=== PATIENT | female | born 1965 | race Two or more races ===

== ENCOUNTER → 2024-03-09 | Outpatient (CLI) | payer MEDICAID, SELFPAY ==
--- NOTE | 2024-03-09 08:30 | XR_ITS ---
Exam: MRI knee without contrast, right Date and time of exam: March 09, 2024 0844 hours INDICATIONS: Lifting injury to the knee May 24, 2023 lateral anterior medial right knee pain joint clicking and swelling beginning 9 months ago Technique: Multiple axial, coronal, and sagittal sections on the knee have been obtained. T2-Weighted sagittal, fat-suppressed images, TR 3,500, TE 62, T2 weighted coronal fat-saturated images, TR 3,500, TE 62 Proton density sagittal sections, TR 1800, TE 31. T-1 weighted coronal images, TR 524, TE 13.0 Findings: Medial meniscus anterior horn intact. Medial meniscus, body is horizontal linear tear communicating inner margin. Posterior horn medial meniscus horizontal linear tear communicating inner margin. Lateral meniscus anterior horn is intact Lateral meniscus, body is intact Posterior horn lateral meniscus is intact Anterior cruciate ligament appears intact. Posterior cruciate ligament appears intact. Knee effusion is small. Quadriceps and patellar tendons appear intact. There is no evidence of tendinosis. Inflammatory change or fracture of Hoffa's fat pad is not seen. Medial patellar facet demonstrates severe thinning. Lateral patellar facet cartilage demonstrates severe thinning. Trochlear cartilage demonstrates severe thinning. Marrow signal adequate. Medial collateral ligament appears intact. No meniscocapsular separation is seen. Illiotibial band and fibular collateral ligament are intact. Biceps femoris tendons appear intact. Medial femoral condylar articular cartilage demonstrates severe thinning. Lateral femoral condylar articular cartilage demonstratesmoderate thinning. Tibial plateau cartilage demonstrates severe medial thinning. Impression: Horizontal linear tear as body and posterior horn medial meniscus
== END | disposition home or self-care (01) ==
PROVIDERS: PCP Family Medicine; Referring Provider Family Medicine; Visit Provider Family Medicine
DX: S83.241A Other tear of medial meniscus, current injury, right knee, initial encounter (principal); X58.XXXA Exposure to other specified factors, initial encounter
CPT/HCPCS: 73721

== ENCOUNTER 2024-06-19 10:25 | Outpatient (AMB) | payer MEDICAID, SELFPAY ==
[2024-06-19 11:03] VITALS: BP 125/81; PULSE 64; RESP 18; TEMP 36.4; O2SAT 96; BMI 40.8
--- NOTE | 2024-06-19 11:03 | PD.ORTHCLVIS ---
Vital signs 06/19/24 11:03 Height 1.63 m Height Method Stated Weight 108.097 kg Weight Measurement Method Standing Scale BMI 40.8 BP 125/81 Blood Pressure Source Automatic Cuff Blood Pressure Location Left Upper Arm Position Sitting Respiration 18 Pulse 64 Pulse Source Monitor Temp 97.5 F Temp Source Temporal Artery Scan Pulse Oximetry (%) 96 Oxygen Delivery Method Room Air Med/Allergies Allergies & Medications Allergies No Known Allergies Allergy (Verified 06/19/24 11:06) Medication Reconciliation levothyroxine 112 mcg tablet 112 mcg PO QDAY 08/11/18 [History Confirmed 06/19/24] acetaminophen 500 mg capsule 500 mg PO Q6H PRN pain #30 caps 09/11/22 [Rx Confirmed 06/19/24] ibuprofen 800 mg tablet 800 mg PO TID PRN pain #30 tabs 06/01/23 [Rx Confirmed 06/19/24] meloxicam 7.5 mg tablet 7.5 mg PO QDAY #45 tabs 06/19/24 [Rx] Exam Exam Breathing is nonlabored. Patient has a normal mood and affect. Bilateral extremities were evaluated and demonstrates sensation intact to light touch. Palpable pedal pulses are present. No significant edema is present. Bilateral hips were examined. The patient has no pain with log roll of the hips. Internal rotation to 30 degrees and external rotation to 30 degrees is painless. Negative FADIR. Left knee was examined today. The left knee is in reasonable alignment. Range of motion from 0-120 degrees. Knee is stable to varus and valgus as well as AP translation with <5mm. Patient has a negative McMurrays. There is no pain with patellofemoral compression and no crepitus noted. The knee is nontender to palpation. The right knee was also examined. The right knee is in varus alignment. Range of motion from 0-115 degrees. Knee is stable to varus and valgus as well as AP translation with <5mm. Patient has a negative McMurrays. There is no pain with patellofemoral compression and no crepitus noted. The knee is tender to palpation medially. An MRI was reviewed. This is in March 2024. This demonstrates a posterior horn the medial meniscus tear Assessment and Plan Problem List (1) Right knee meniscal tear: Status: Acute Plan: Patient is a 58-year-old female with a right knee meniscal tear and right knee arthritis. We discussed different treatment options. We would like to get weightbearing x-rays. We will likely do a cortisone injection at the next visit. Plan Recommend knee cortisone injection as patient would like to proceed with conservative treatment at this time. The risks and benefits of the procedure were reviewed with the patient and patient gave verbal consent to continue with the procedure. Procedure: performed by Dr. Holt Using sterile technique the Right knee was thoroughly prepped with alcohol, and approximately 1 cc of Kenalog 40 mg/mL and 4 cc of 1% lidocaine was injected without resistance into the medial tibial femoral joint space. The patient tolerated the procedure. 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) [place] Intake Visit Data Collection New Patient or Established: New Patient (never been to [facility]) Reason for Visit:: MENISCUS TEARRIGHT KNEE PAIN Lathmaker Required: Yes PCP or OBGYN visit in last 3 months: Yes Hx Now: No Do You Feel Safe at Home: Yes Authorities Contacted: N/A Questionairres Past Medical History Past Medical History Have you ever been diagnosed with any of the following: Neurological Problems Seizures: No Cardiology Problems Congestive Heart Failure: No Edema: No Cellulitis: No Hypertension: Yes Varicose Veins: Yes Respiratory Problems Chronic Obstructive Pulmonary Disease (COPD): No Tuberculosis: No Sleep Apnea: Yes Smoking: No Smoking Exposure: No Stomache/Intestinal Problems Hepatitis: No Gall Bladder Disease: Yes Gastroesophageal Reflux Disease: Yes Obesity: Yes Genital/Urinary Problems Renal Disease: No Kidney Stones: No Reproductive Problems Pelvic Inflammatory Disease: No Previous Pregnancies: Yes (6) Endocrine Problems Diabetes Mellitus Type 1: No Diabetes Mellitus Type 2: No Hypothyroidism: Yes Other Problems Hospitalization: Yes (surgery) Shingles: No Falls: No Blood Transfusions: No Blood Transfusion Reaction: No Anesthesia Reactions: No Chemotherapy: No Radiation Therapy: No MRSA: No Chicken Pox: Yes Measles: No Mumps: No Cancer: No Surgical History Hysterectomy: Yes (PARTIAL) Pacemaker: No Subjective Visit Visit for: new patient and knee (RIGHT) Immunization / Flu Flu Vaccine in the Last 12 Months: Yes Flu Vaccine Exclusion Criteria: Already Received History of Present Illness Chief complaint: Bilateral knee pain Patient is a pleasant 58-year-old female with bilateral knee pain. We discussed different treatment options. She is only tried anti-inflammatories and physical therapy. Has not had any injections. She has a chronic meniscal tear. Pain Pain level (0-10): 6 Pain duration: ON AND OFF Pain location: inside (medial), outside (lateral) and anterior Pain quality: sharp, dull and aching Pain timing: night, increases with activity and stairs Associated signs & symptoms: weakness Ambulatory data Ambulatory device: none Treatments Improvement with previous injections: No Number of Physical Therapy sessions: 8 Improvement with PT: No Improvement with NSAIDS: no Review of Systems Review of Systems: All systems negative unless otherwise noted in HPI.
--- NOTE | 2024-06-19 11:26 | XR_ITS ---
Examination: Bilateral knees 2 views Right lateral knee left lateral knee 2 views Bilateral axial knees single view TECHNIQUE: Bilateral AP standing knees single view, bilateral PA knees standing single view flexion Standing right lateral knee left lateral knee 2 views Bilateral axial knees single view total 6 views Exam date and time: June 19, 2024 1147 hours INDICATIONS: Bilateral knee pain, right-sided knee injury one year ago left-sided knee pain 4 months FINDINGS: Moderate to advanced narrowing medial joint space right knee Moderate osteoarthritis right patellofemoral joint Mild to moderate narrowing medial joint space left knee Mild to moderate osteoarthritis left patellofemoral joint No fracture involving either knee, no patellar dislocation Impression: Osteoarthritis as above
== END 2024-06-19 11:34 | disposition home or self-care (01) ==
PROVIDERS: PCP Family Medicine; Referring Provider Family Medicine; Supervising Provider Orthopaedic Surgery Adult Reconstructive Orthopaedic Surgery; Visit Provider Orthopaedic Surgery Adult Reconstructive Orthopaedic Surgery
DX: S83.206A Unspecified tear of unspecified meniscus, current injury, right knee, initial encounter (principal); M17.11 Unilateral primary osteoarthritis, right knee; X58.XXXA Exposure to other specified factors, initial encounter; I10 Essential (primary) hypertension; G47.30 Sleep apnea, unspecified
CPT/HCPCS: 73564; 99204; G0463

== ENCOUNTER 2024-07-06 09:37 | Outpatient (AMB) | payer MEDICAID, SELFPAY ==
[2024-07-06 10:22] VITALS: BP 124/81; PULSE 65; RESP 18; TEMP 36.4; O2SAT 99; BMI 44.1
--- NOTE | 2024-07-06 10:22 | ORTHONT_ITS ---
Vital signs 07/06/24 10:22 Height 1.63 m Height Method Stated Weight 117.112 kg Weight Measurement Method Standing Scale BMI 44.1 BP 124/81 Blood Pressure Source Automatic Cuff Blood Pressure Location Right Upper Arm Position Sitting Respiration 18 Pulse 65 Pulse Source Monitor Temp 97.6 F Temp Source Temporal Artery Scan Pulse Oximetry (%) 99 Oxygen Delivery Method Room Air Med/Allergies Allergies & Medications Allergies No Known Allergies Allergy (Verified 07/06/24 10:23) Medication Reconciliation levothyroxine 112 mcg tablet 112 mcg PO QDAY 08/11/18 [History Confirmed 07/06/24] acetaminophen 500 mg capsule 500 mg PO Q6H PRN pain #30 caps 09/11/22 [Rx Confirmed 07/06/24] ibuprofen 800 mg tablet 800 mg PO TID PRN pain #30 tabs 06/01/23 [Rx Confirmed 07/06/24] meloxicam 7.5 mg tablet 7.5 mg PO QDAY #45 tabs 06/19/24 [Rx Confirmed 07/06/24] pantoprazole 40 mg tablet,delayed release 40 mg PO QDAY 07/06/24 [History Confirmed 07/06/24] sucralfate 1 gram tablet 1 g PO BID 07/06/24 [History Confirmed 07/06/24] Exam Exam Breathing is nonlabored. Patient has a normal mood and affect. Bilateral extremities were evaluated and demonstrates sensation intact to light touch. Palpable pedal pulses are present. No significant edema is present. Bilateral hips were examined. The patient has no pain with log roll of the hips. Internal rotation to 30 degrees and external rotation to 30 degrees is painless. Negative FADIR. Left knee was examined today. The left knee is in reasonable alignment. Range of motion from 0-120 degrees. Knee is stable to varus and valgus as well as AP translation with <5mm. Patient has a negative McMurrays. There is no pain with patellofemoral compression and no crepitus noted. The knee is nontender to palpation. The right knee was also examined. The right knee is in varus alignment. Range of motion from 0-115 degrees. Knee is stable to varus and valgus as well as AP translation with <5mm. Patient has a negative McMurrays. There is no pain with patellofemoral compression and no crepitus noted. The knee is tender to palpation medially. X-rays demonstrate mild to moderate joint space narrowing of the right knee with osteophytes. Assessment and Plan Problem List (1) Right knee meniscal tear: Status: Acute Plan: Patient is a 58-year-old female with a right knee meniscal tear and right knee arthritis. We discussed different treatment options. She has mild to moderate arthritis, treated conservatively with an injection. We also discussed the natural history of degenerative meniscal tear today Plan Recommend knee cortisone injection as patient would like to proceed with conservative treatment at this time. The risks and benefits of the procedure were reviewed with the patient and patient gave verbal consent to continue with the procedure. Procedure: performed by Dr. Holt Using sterile technique the Right knee was thoroughly prepped with alcohol, and approximately 1 cc of Kenalog 40 mg/mL and 4 cc of 1% lidocaine was injected without resistance into the medial tibial femoral joint space. The patient tolerated the procedure. Office Procedures GNS Level of Care Nursing/Assessment Patient Status: Established Patient Nursing Assessment/Reassesment: Medication Reconciliation, Update PMH in EMR and Vital Signs Coordination of Care: Complex Care and Chronic Disease 1-5, Education Complex Pt/Fam, Consent,records obtained, informed consent, Results/Orders obtained and Staff clarify orders Special Needs: Language special needs Established Patient Charge Established Patient Point Assignment: 95 Established Patient Point Charge: EP Level 3 (80-115) Surgical Proc/IM SQ injection Major Surgical Procedure: Yes (RIGHT KNEE INJECTION) Medication Given Medication Given Medication Given: Yes Documented Dose Given: 4 Route: Infiitration Medication Given Medication Given Medication Given: Yes Documented Dose Given: 1 Route: Infiitration Office Meds Xylocaine 10 mg/mL (1 %) injection solution Performing Provider: Antonio Holt MD Performing Location: [facility] Administered by: Antonio Holt MD on 07/06/24 11:11 Dose Route Admin Location Dispensed Lot Number Expiration Date [facility] [employer] 20 mL Infiltration 20 mL [id number] 08/02/27 45901-382-92 [facility] triamcinolone acetonide 40 mg/mL suspension for injection Performing Provider: Antonio Holt MD Performing Location: [facility] Administered by: Antonio Holt MD on 07/06/24 11:11 Dose Route Admin Location Dispensed Lot Number Expiration Date [facility] [employer] 40 mg intra-articular KNEE 1 mL [id number] 08/31/25 4027-8198-60 [facility] [place] Intake Visit Data Collection New Patient or Established: Established Patient (seen at [facility] within 3 years) Reason for Visit:: F/U XRAYS Seen by Clinical Staff ONLY (RN/MA): 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 PCP or OBGYN visit in last 3 months: Yes Hx Now: No Do You Feel Safe at Home: Yes Authorities Contacted: N/A Questionairres Past Medical History Past Medical History Have you ever been diagnosed with any of the following: Neurological Problems Seizures: No Cardiology Problems Congestive Heart Failure: No Edema: No Cellulitis: No Hypertension: Yes Varicose Veins: Yes Respiratory Problems Chronic Obstructive Pulmonary Disease (COPD): No Tuberculosis: No Sleep Apnea: Yes Smoking: No Smoking Exposure: No Stomache/Intestinal Problems Hepatitis: No Gall Bladder Disease: Yes Gastroesophageal Reflux Disease: Yes Obesity: Yes Genital/Urinary Problems Renal Disease: No Kidney Stones: No Reproductive Problems Pelvic Inflammatory Disease: No Previous Pregnancies: Yes (6) Endocrine Problems Diabetes Mellitus Type 1: No Diabetes Mellitus Type 2: No Hypothyroidism: Yes Other Problems Hospitalization: Yes (surgery) Shingles: No Falls: No Blood Transfusions: No Blood Transfusion Reaction: No Anesthesia Reactions: No Chemotherapy: No Radiation Therapy: No MRSA: No Chicken Pox: Yes Measles: No Mumps: No Cancer: No Surgical History Hysterectomy: Yes (PARTIAL) Pacemaker: No Subjective Visit Visit for: follow up visit and x-rays (RESULTS) Immunization / Flu Flu Vaccine in the Last 12 Months: No Flu Vaccine Exclusion Criteria: No Exclusion Criteria History of Present Illness Chief complaint: right knee pain Patient is a 58-year-old female with a right knee degenerative meniscal tear with posterior horn. We discussed that this is typically treated nonoperatively. She reports the pain is still tolerable at this point in time. Pain is medially. Pain Pain level (0-10): 6 Pain duration: ALL DAY Pain location: anterior and posterior Pain quality: sharp, dull and aching Associated signs & symptoms: none Ambulatory data Ambulatory device: none Treatments Improvement with previous injections: No Improvement with PT: No Improvement with NSAIDS: no Review of Systems Review of Systems: All systems negative unless otherwise noted in HPI.
== END 2024-07-06 10:42 | disposition home or self-care (01) ==
LOC: HODSRG 09:37
PROVIDERS: PCP Family Medicine; Referring Provider Family Medicine; Supervising Provider Orthopaedic Surgery Adult Reconstructive Orthopaedic Surgery; Visit Provider Orthopaedic Surgery Adult Reconstructive Orthopaedic Surgery
DX: S83.203D Other tear of unspecified meniscus, current injury, right knee, subsequent encounter (principal); X58.XXXD Exposure to other specified factors, subsequent encounter; M17.11 Unilateral primary osteoarthritis, right knee; I10 Essential (primary) hypertension; G47.30 Sleep apnea, unspecified; K21.9 Gastro-esophageal reflux disease without esophagitis; E03.9 Hypothyroidism, unspecified
CPT/HCPCS: 20610; 99213; J3301; J3490; G0463

== ENCOUNTER 2024-08-14 06:05 | Emergency (ER) | payer MEDICAID, SELFPAY ==
[2024-08-14 06:05] VITALS: BMI 39.4
[2024-08-14 06:51] VITALS: BP 155/92; PULSE 63; RESP 16; TEMP 37; O2SAT 96
--- NOTE | 2024-08-14 07:05 | PD.EDHA ---
ED Headache RME/HPI General Chief Complaint: Headache Stated Complaint: HEADACHE Time Seen by Provider: 08/14/24 06:24 Arrival date/time: 08/14/24 06:05 This is a 58-year-old female that comes in with complaints of headache. Patient states she was recently sick with a sinus infection/throat infection. Patient states she was given antibiotics. Patient reports that she still having a headache. Patient denies nausea vomiting diarrhea. Patient has a history of hypothyroidism gastritis. Related Data Home Medications ?Medication ?Instructions ?Recorded ?Confirmed levothyroxine 112 mcg tablet 112 mcg PO QDAY 08/11/18 07/06/24 pantoprazole 40 mg tablet,delayed 40 mg PO QDAY 07/06/24 07/06/24 release sucralfate 1 gram tablet 1 g PO BID 07/06/24 07/06/24 Previous Rx's ?Medication ?Instructions ?Recorded acetaminophen 500 mg capsule 500 mg PO Q6H PRN pain #30 caps 09/11/22 ibuprofen 800 mg tablet 800 mg PO TID PRN pain #30 tabs 06/01/23 meloxicam 7.5 mg tablet 7.5 mg PO QDAY #45 tabs 06/19/24 Allergies Allergy/AdvReac Type Severity Reaction Status Date / Time No Known Allergies Allergy Verified 07/06/24 10:23 Review of Systems Review of Systems Systems Reviewed: All systems reviewed, normal except as documented Past Medical History Past Medical History NEUROLOGIC: Negative Neurological Disorders CARDIAC: Negative Cardiac Disorders ED Exam Narrative Physical exam: VITAL SIGNS: Reviewed. GENERAL APPEARANCE: Alert and interactive, follows commands, no acute distress, HEAD AND FACE: Non-traumatic. ENT: PERRL, pink conjunctivitis, eyelid no trauma, Mucous membrane moist. NECK: Supple, nontender, no nuchal rigidity. CHEST: No tenderness, no crepitus, no paradoxical movement, no retractions. LUNGS: Clear, well ventilated, symmetric, no rales, no wheezing, no rhonchi, no stridor, good breath sounds bilaterally. HEART: Regular rate, regular rhythm, no murmur, no gallops. ABDOMEN: Soft, nondistended, no guarding, nontender, no rebound, no masses, NEUROLOGICAL: Gross motor function intact sensory function intact, Appropriate for age. MUSCULOSKELETAL: low back nontender, full range of motion. EXTREMITIES: No redness no swelling no skin breakdown on bilateral foot and leg. Distal neurovascular status intact bilateral foot SKIN: Color pink, dry, no rash, no lacerations, no abrasions, no contusions. Course Quality Measures none Orders Category Date Time Status Bedside COVID-19 Antigen Test NOW Care 08/14/24 07:05 Completed Bedside Influenza A&B Antigen Test NOW Care 08/14/24 07:06 Completed Urinalysis, C/S if Indicated Stat Lab 08/14/24 07:39 Completed Acetaminophen Tab [Tylenol ES Tab] Med 08/14/24 07:04 Discontinued 1,000 mg PO X1 ONE DiphenhydrAMINE INJ [Benadryl Inj] Med 08/14/24 07:04 Discontinued 25 mg IM X1 ONE Ketorolac Inj [Toradol Inj] Med 08/14/24 07:04 Discontinued 60 mg IM X1 ONE Metoclopramide Inj [Reglan Inj] Med 08/14/24 07:04 Discontinued 10 mg IM X1 ONE Vital Signs Vital signs: Vital Signs Temperature 98.6 F 08/14/24 06:51 Pulse Rate 63 08/14/24 06:51 Respiratory Rate 16 08/14/24 06:51 Blood Pressure 155/92 H 08/14/24 06:51 Pulse Oximetry (%) 96 08/14/24 06:51 Oxygen Delivery Method Room Air 08/14/24 06:51 Headache MDM Narrative MDM Narrative:: COVID and flu negative. UA was negative. Pt given tylenol, toradol, reglan, and ebnadryl. Patient's headache resolved. Patient told to come back to the emergency room if symptoms change or worsen. Patient feels comfortable with plan of care. Instructed to follow-up with primary provider in 1 to 2 days. Patient data External records reviewed:: [facility] previous records Clinical information provided by:: patient Social determinants that could affect healthcare access:: none Patient has the following chronic illnesses:: none How is presenting disease/condition affected by chronic disease/condition?: no chronic disease Evaluation data The following diagnostics were reviewed and interpreted by me:: lab results Lab and/or radiology exams considered but not ordered:: none Interpretation Summary: see note Medications / Prescriptions Medications or Prescriptions considered but not ordered:: none Medication administrations:: Medication Administration History Discontinued Medications Acetaminophen (Acetaminophen 500 Mg Tablet) 1,000 mg PO X1 ONE Stop: 08/14/24 07:05 Last Admin: 08/14/24 07:27 Dose: 1,000 mg Documented By: FRANK Diphenhydramine HCl (Diphenhydramine Inj 50 Mg/Ml Vial) 25 mg IM X1 ONE Stop: 08/14/24 07:05 Last Admin: 08/14/24 07:31 Dose: 25 mg Documented By: FRANK Ketorolac Tromethamine (Ketorolac Inj 60 Mg/2 Ml Vial) 60 mg IM X1 ONE Stop: 08/14/24 07:05 Last Admin: 08/14/24 07:28 Dose: 60 mg Documented By: FRANK Metoclopramide HCl (Metoclopramide Inj 5 Mg/Ml Vial 2 Ml) 10 mg IM X1 ONE; Protocol Stop: 08/14/24 07:05 Last Admin: 08/14/24 07:30 Dose: 10 mg Documented By: FRANK see mar Consultations Consultation(s) initiated? (list below): No Diagnosis Differential diagnosis headache: migraine, tension headache, headache and sinusitis Most likely diagnosis given after review of the tests above:: tension headache Admission Indicated Admission indicated?: not indicated Admission Request Was there a request for admission?: No Disposition Plan Disposition Plan: Discharge Discharge Attestation Discharge Attestation: The patient and all family members were given an opportunity to ask questions and understood the discharge instructions. Discharge instructions specifically effects, indications for sooner follow up or return to the emergency department, and the expected course of current diagnosis. Patient condition: Stable Discharge Plan Plan Patient Disposition: HOME (Self Care) Patient condition on transfer: Stable Prescriptions/Referrals Prescriptions/Med Rec: No Action sucralfate 1 gram tablet 1 g PO BID pantoprazole 40 mg tablet,delayed release (DR/EC) 40 mg PO QDAY lidocaine HCl [Xylocaine] 10 mg/mL (1 %) solution 20 ml Infiltration X1 Qty: 20 0RF lidocaine HCl [Xylocaine] 10 mg/mL (1 %) solution 20 ml Infiltration X1 Qty: 20 0RF triamcinolone acetonide 40 mg/mL suspension 40 mg intra-articular X1 Qty: 1 0RF triamcinolone acetonide 40 mg/mL suspension 40 mg intra-articular X1 Qty: 1 0RF meloxicam 7.5 mg tablet 7.5 mg PO QDAY Qty: 45 3RF levothyroxine 112 mcg Tablet 112 mcg PO QDAY acetaminophen 500 mg capsule 500 mg PO Q6H PRN (Reason: pain) Qty: 30 0RF ibuprofen 800 mg tablet 800 mg PO TID PRN (Reason: pain) Qty: 30 0RF Referrals: Glenny Nuñez FNP [Primary Care Provider] - In 1 week Problem List Clinical Impression: Headache Patient/Caregiver Discharge Instructions Discharge Activity: activity as tolerated Education Materials: Self-Care for Headaches Additional Instructions: Angela un calvin con moeller medico de cabecera en las proximas 24-48 horas. Regrese a la judy de emergencias si hay evidencia de que los signos o sintomas empeoran. Print Language: Libyan Stand Alone Forms: Joan Award Info., Patient Portal Info Letter GALDINO/BEVERLY Supervising Physician MAI Supervising Physician: ryan
[2024-08-14] MEDS: ACETAMINOPHEN 500 MG TABLET 1000 MG PO (07:27)
[2024-08-14] MEDS: KETOROLAC INJ 60 MG/2 ML VIAL IM (07:28)
[2024-08-14] MEDS: METOCLOPRAMIDE INJ 5 MG/ML VIAL 2 ML 10 MG IM (07:30)
[2024-08-14] MEDS: DiphenhydrAMINE INJ 50 MG/ML VIAL 25 MG IM (07:31)
[2024-08-14 07:51] LABS: Collection Type, Urine Voided
[2024-08-14 08:20] LABS: Bilirubin,Urine Negative (Negative); Blood,Urine Negative (Negative); Clarity,Urine Clear (Clear/Hazy); Color,Urine Colorless (Lt Yel-Yel); Culture Indicated,Urine Not Indicated; Glucose, Urine Negative (Negative); Ketones,Urine Negative (Negative); Leukocyte Esterase,Urine Negative (Negative); Nitrite,Urine Negative (Negative); PH,Urine 6.5 (5.0-7.0); Protein,Urine Negative (Neg - Trace); RBC,Urine < 1 /hpf (0-3); Specific Gravity,Urine 1.005 (1.001-1.035); Squamous Epithelial Cell,Urine < 1 /hpf (0-5); Urobilinogen,Urine Negative mg/dL (0.0-1.0); WBC,Urine < 1 /hpf (0-5)
[2024-08-14 09:28] VITALS: BP 124/77; PULSE 65; RESP 16; O2SAT 99
== END 2024-08-14 09:29 | disposition home or self-care (01) ==
PROVIDERS: Nurse Practitioner Family; Emergency Provider Emergency Medicine; PCP Nurse Practitioner Family
DX: R51.9 Headache, unspecified (principal); E03.9 Hypothyroidism, unspecified
CPT/HCPCS: 81001; 87400; 87811; 96372; 99283; J1200; J1885; J2765; A9270